=== PATIENT | female | born 1990 | race Caucasian/White ===

== ENCOUNTER 2017-04-13 00:55 | Emergency (ER) | payer OTHER ==
[~2017-04-13] VITALS: Ht 170.2 cm; Wt 66.7 kg
--- NOTE | 2017-04-13 01:10 | NUR ---
PT BIB SELF, PT C/O BACK AND NECK PAIN S/P CHIROPRACTOR TODAY WITH WEAKNESS AND NAUSEA. PT AOX3 RR EVEN AND UNLABORED. NO SOB NOTED. NAD NOTED. NO NVD AT THIS TIME. PT GOWNED AND PLACED ON MONITOR WAITING FOR MD COLON. Addendum: 04/13/17 at 0111 by MAGALY PT NOTED WITH STEADY GAIT AMBULATORY TO ER BED 3
[2017-04-13] MEDS ORDERED: IV NS 0.9% 1,000 ML BAG IV ONE (01:30)
[2017-04-13] MEDS ORDERED: ONDANSETRON HCL/PF 4 MG/2 ML VIAL IVP ONE (01:30)
--- NOTE | 2017-04-13 01:30 | NUR ---
PT SIGNED WAIVER.
[2017-04-13] MEDS ORDERED: ONDANSETRON HCL/PF 4 MG/2 ML VIAL ONE (01:44)
--- NOTE | 2017-04-13 01:48 | NUR ---
PT REFUSED IVP ZOFRAN AT THIS TIME. RISK AND BENEFITS EXPLAINED X3. PT REFUSED.
[2017-04-13 01:59] LABS: BASOPHILS % (AUTO) 0.5 % (0.0-2.0); EOSINOPHILS # (AUTO) 0.2 /CMM (0.0-0.7); EOSINOPHILS % (AUTO) 2.3 % (0.0-6.0); HEMATOCRIT 39 % (33-45); HEMOGLOBIN 13.5 g/dL (11.5-14.8); LYMPHOCYTES # (AUTO) 2.3 /CMM (0.8-4.8); LYMPHOCYTES % (AUTO) 34.6 % (20.0-44.0); MEAN CORPUSCULAR HEMOGLOBIN 32 PG (26.0-33.0); MEAN CORPUSCULAR HGB CONC 35 g/dl (31.0-36.0); MEAN CORPUSCULAR VOLUME 91 fL (82-100); MONOCYTES # (AUTO) 0.6 /CMM (0.1-1.30); MONOCYTES % (AUTO) 9.3 % (2.0-12.0); NEUTROPHILS # (AUTO) 3.6 /CMM (1.8-8.9); NEUTROPHILS % (AUTO) 53.3 % (43.0-81.0); PLATELET COUNT (AUTO) 285 /CMM (150-450); RDW COEFFICIENT OF VARIATION 12.7 (11.5-15.0); RED BLOOD CELL COUNT(AUTO) 4.25 MIL/uL (4.0-5.2); WHITE BLOOD COUNT (AUTO) 6.7 K/uL (4.3-11.0)
[2017-04-13 02:08] LABS: CREATININE 0.8 mg/dL (0.6-1.3); POTASSIUM 3.4 mmol/L (3.5-5.1)
[2017-04-13] MEDS ORDERED: IOHEXOL-350 100 ML VIAL IV ONE (02:14)
[2017-04-13] MEDS ORDERED: IV NS 0.9% 250 ML IV ONE (02:14)
[2017-04-13] MEDS ORDERED: CT SWABBABLE VALVE TRANS SET 1 EA INFUS.SET MC ONE (02:14)
--- NOTE | 2017-04-13 02:15 | NUR ---
PT TO CT.
--- NOTE | 2017-04-13 02:33 | NUR ---
PT RETURNED FROM CT.
--- NOTE | 2017-04-13 02:57 | NUR ---
DR. STRICKLAND SPEAKING TO RADIOLIOGIST REGARDING RESULTS.
--- NOTE | 2017-04-13 03:49 | NUR ---
DR. STRICKLAND AT BEDSIDE SPEAKING TO PT REGARDING RESULTS
--- NOTE | 2017-04-13 03:58 | NUR ---
IV removed. Catheter intact and site benign. Pressure and 4x4 applied to site. No bleeding noted. Patient discharged to home in stable condition. Written and verbal after care instructions given. Patient verbalizes understanding of instruction. ambulatory with a steady gait
[2017-04-13 03:59] VITALS: BP 118/70
== END 2017-04-13 04:00 | disposition home or self-care (01) ==
LOC: ER 00:56
DX: M54.2 Cervicalgia (principal); R11.0 Nausea; R42 Dizziness and giddiness; R51 Headache; Z90.89 Acquired absence of other organs
CPT/HCPCS: 36415; 70496-TC; 70498-TC; 80048-TC; 85025-TC; A4606; J2405; J7030; J7050; Q9967; Z7610